=== PATIENT | male | born 1930 | race Caucasian/White ===

== ENCOUNTER → 2016-11-08 | Outpatient (CLI) | payer MEDICARE ==
[2016-04-28 11:00] VITALS: BP 155/85
[~2016-11-08] MED LIST: ASPI325T8 PO; AZIT250T6 PO; CEFP200T PO; DIPH25CA58 PO; EZET10TA18 PO; GUAI600T47 PO; HYDR25TA9 PO; LISI2.5T PO; NIAC500T PO; OSEL30CA PO
--- NOTE | 2016-11-08 14:37 | KCIC ---
INDICATION: Bronchitis. COPD. Productive cough. TECHNIQUE: Two-view chest radiograph contains a repeat PA film. There are 3 images total. No comparison is available at this institution. FINDINGS: The lungs are clear. There is no pleural effusion. The heart is not enlarged and there is no heart failure. There is atheromatous disease in the thoracic aorta with mild tortuosity. There are degenerative changes in the spine. There is no perihilar opacity or peribronchial cuffing. IMPRESSION: No acute thoracic findings. Electronically signed by: Mani Barraza MD (11/08/2016 2:34 PM) [facility]
== END | disposition home or self-care (01) ==
LOC: KCIC 13:34
PROVIDERS: ATTEND Family Medicine
DX: J44.9 Chronic obstructive pulmonary disease, unspecified (principal); J40 Bronchitis, not specified as acute or chronic
CPT/HCPCS: 71020

== ENCOUNTER → 2017-05-08 | Outpatient (CLI) | payer MEDICARE ==
[2017-05-08 11:25] LABS: ALBUMIN 3.5 g/dL (3.4-5.0); ALK PHOS 39 U/L (46-116); ALT (SGPT) 29 U/L (16-63); ANION GAP 9 (6-14); AST (SGOT) 29 U/L (15-37); BLOOD UREA NITROGEN 42 mg/dL (8-26); CALCIUM 9.3 mg/dL (8.5-10.1); CARBON DIOXIDE 27 mmol/L (21-32); CHLORIDE 102 mmol/L (98-107); CHOLESTEROL 116 mg/dL (0-200); CREATININE 2.7 mg/dL (0.7-1.3); DIRECT BILIRUBIN 0.3 mg/dL (0.0-0.2); GFR 22.4; GLUCOSE 109 mg/dL (70-99); HDLC 43 mg/dL (40-60); LDLC 57 mg/dL (0-100); NON-HDL CHOLESTEROL 73 mg/dL (0-129); POTASSIUM 4.4 mmol/L (3.5-5.1); SODIUM 138 mmol/L (136-145); TOTAL BILIRUBIN 0.6 mg/dL (0.2-1.0); TOTAL PROTEIN 7.4 g/dL (6.4-8.2); TRIGLYCERIDES 82 mg/dL (0-150); VLDLC 16 mg/dL (0-40)
[2017-05-08 11:27] LABS: THYROID STIM HORMONE (TSH) 1.819 uIU/mL (0.358-3.74)
[2017-05-08 11:31] LABS: CHOLESTEROL/HDL RATIO 2.7
== END | disposition home or self-care (01) ==
LOC: PF 08:45
DX: Z51.81 Encounter for therapeutic drug level monitoring (principal); I48.91 Unspecified atrial fibrillation; J98.6 Disorders of diaphragm; Z79.899 Other long term (current) drug therapy
CPT/HCPCS: 36415; 71046; 80048; 80061; 80076; 84439; 84443; 94010; 94729

== ENCOUNTER → 2018-03-23 | Outpatient (CLI) | payer MEDICARE ==
[2016-04-28 11:00] VITALS: BP 155/85
[~2018-03-23] MED LIST changes: +HYDR-2145 PO; -HYDR25TA9 PO
--- NOTE | 2018-03-23 11:26 | KCIC ---
CHEST PA LATERAL History: COPD, previous cardiac stent, cardiovascular medicine, history of amiodarone use Comparison: 05/08/2017 Findings: 2 views of the chest are submitted. There is no infiltrate, pneumothorax, or effusion. The cardiac silhouette is within normal limits in size. There is again tortuous thoracic aorta, atherosclerotic calcification near arch. Impression: 1. No new radiographic abnormality is identified. Electronically signed by: Valdo Kahn MD (03/23/2018 11:22 AM) [facility]
== END | disposition home or self-care (01) ==
LOC: KCIC 10:40
PROVIDERS: ATTEND Internal Medicine Interventional Cardiology
DX: J44.9 Chronic obstructive pulmonary disease, unspecified (principal); I77.1 Stricture of artery; I70.0 Atherosclerosis of aorta; Z79.899 Other long term (current) drug therapy
CPT/HCPCS: 71046

== ENCOUNTER 2018-04-26 19:59 | Emergency (ER) | payer MEDICARE ==
[~2018-04-26] VITALS: Ht 170.2 cm; Wt 76.2 kg
[2018-04-26] MEDS ORDERED: IPRATRPIUM/ALBUTEROL 0.5/2.5MG 3 ML NEBU. NEB ONE (20:30)
[2018-04-26 20:32] LABS: BASO # 0.1 x10^3/uL (0.0-0.2); BASO % 1 % (0-3); EOS # 0.2 x10^3/uL (0.0-0.7); EOS % 3 % (0-3); HEMATOCRIT 34.1 % (39.0-53.0); HEMOGLOBIN 11.6 g/dL (13.0-17.5); LYMPH # 1.2 x10^3/uL (1.0-4.8); LYMPH % 14 % (24-48); MEAN CORPUSCULAR HEMOGLOBIN 32 pg (25-35); MEAN CORPUSCULAR HGB CONC 34 g/dL (31-37); MEAN CORPUSCULAR VOLUME 93 fL (79-100); MONO # 1.3 x10^3/uL (0.0-1.1); MONO % 16 % (0-9); NEUT # 5.6 x10^3uL (1.8-7.7); NEUT % 67 % (31-73); PLATELET COUNT 264 x10^3/uL (140-400); RED BLOOD COUNT 3.66 x10^6/uL (4.30-5.70); RED CELL DISTRIBUTION WIDTH 14.5 % (11.5-14.5); WHITE BLOOD COUNT 8.4 x10^3/uL (4.0-11.0)
--- NOTE | 2018-04-26 20:36 | PHYS DOC ---
Past Medical History Past Medical History: COPD, High Cholesterol, Hypertension, SD, Renal Disease Additional Past Medical Histor: end-stage renal disease Past Surgical History: Other Additional Past Surgical Histo: cardiac stents Alcohol Use: None Drug Use: None Adult General Chief Complaint Chief Complaint: COUGH HPI HPI Patient is a 87 year old male who presents with cough and fever for 2 weeks. Patient has been trying to medicate for this at home with colloidal silver and [id number] cough medication. Patient was having discussion with a friend who had similar symptoms and was ultimately diagnosed with pneumonia. Patient had a temperature of 99� today which prompted his presentation to the emergency department. Denies any chest pain or palpitations. He notes that he has had some lower extremity swelling since being taken off of his diuretic due to his chronic kidney disease and low blood pressure while being on a diuretic. Denies any orthopnea or postural nocturnal dyspnea.[] Review of Systems Review of Systems Constitutional: Denies chills [] Eyes: Denies change in visual acuity, redness, or eye pain [] HENT: Denies nasal congestion or sore throat [] Respiratory: Denies shortness of breath with exertion, see history of present illness[] Cardiovascular: No S pain or palpitations[] GI: Denies abdominal pain, nausea, vomiting, bloody stools or diarrhea [] : Denies dysuria or hematuria [] Musculoskeletal: Denies back pain or joint pain [] Integument: Denies rash or skin lesions [] Neurologic: Denies headache, focal weakness or sensory changes [] Endocrine: Denies polyuria or polydipsia [] All other systems were reviewed and found to be within normal limits, except as documented in this note. Current Medications Current Medications Current Medications Medications (Trade) Dose Ordered Sig/[facility] Start Time Stop Time Status Last Admin Dose Admin Albuterol/ Ipratropium (Duoneb) 3 ml 1X ONCE 04/26/18 20:30 04/26/18 20:31 DC 04/26/18 20:59 3 ML Allergies Allergies Allergies Coded Allergies Type Severity Reaction Last Updated Verified No Known Drug Allergies 04/27/16 No Physical Exam Physical Exam Constitutional: Well developed, well nourished, no acute distress, non-toxic appearance. [] HENT: Normocephalic, atraumatic, bilateral external ears normal, oropharynx moist, no oral exudates, nose normal. [] Eyes: PERRLA, EOMI, conjunctiva normal, no discharge. [] Neck: Normal range of motion, no tenderness, supple, no stridor. [] Cardiovascular:Heart rate regular rhythm, no murmur [] Lungs & Thorax: Bilateral breath sounds clear to auscultation [] Abdomen: Bowel sounds normal, soft, no tenderness, no masses, no pulsatile masses. [] Skin: Warm, dry, no erythema, no rash. [] Back: No tenderness, no CVA tenderness. [] Extremities: No tenderness, no cyanosis, no clubbing, ROM intact, 1-2+ pretibial edema bilaterally symmetric[] Neurologic: Alert and oriented X 3, normal motor function, normal sensory function, no focal deficits noted. [] Psychologic: Affect normal, judgement normal, mood normal. [] Current Patient Data Vital Signs Vital Signs Date Time Temp Pulse Resp B/P (MAP) Pulse Ox O2 Delivery O2 Flow Rate FiO2 04/26/18 20:10 98.4 20 140/65 (90) 98 Room Air 98.4 Lab Values Laboratory Tests Test 04/26/18 20:19 White Blood Count 8.4 x10^3/uL (4.0-11.0) Red Blood Count 3.66 x10^6/uL (4.30-5.70) L Hemoglobin 11.6 g/dL (13.0-17.5) L Hematocrit 34.1 % (39.0-53.0) L Mean Corpuscular Volume 93 fL (79-100) Mean Corpuscular Hemoglobin 32 pg (25-35) Mean Corpuscular Hemoglobin Concent 34 g/dL (31-37) Red Cell Distribution Width 14.5 % (11.5-14.5) Platelet Count 264 x10^3/uL (140-400) Neutrophils (%) (Auto) 67 % (31-73) Lymphocytes (%) (Auto) 14 % (24-48) L Monocytes (%) (Auto) 16 % (0-9) H Eosinophils (%) (Auto) 3 % (0-3) Basophils (%) (Auto) 1 % (0-3) Neutrophils # (Auto) 5.6 x10^3uL (1.8-7.7) Lymphocytes # (Auto) 1.2 x10^3/uL (1.0-4.8) Monocytes # (Auto) 1.3 x10^3/uL (0.0-1.1) H Eosinophils # (Auto) 0.2 x10^3/uL (0.0-0.7) Basophils # (Auto) 0.1 x10^3/uL (0.0-0.2) Sodium Level 135 mmol/L (136-145) L Potassium Level 4.2 mmol/L (3.5-5.1) Chloride Level 99 mmol/L (98-107) Carbon Dioxide Level 26 mmol/L (21-32) Anion Gap 10 (6-14) Blood Urea Nitrogen 34 mg/dL (8-26) H Creatinine 2.5 mg/dL (0.7-1.3) H Estimated GFR (Cockcroft-Gault) 24.4 BUN/Creatinine Ratio 14 (6-20) Glucose Level 141 mg/dL (70-99) H Calcium Level 8.7 mg/dL (8.5-10.1) Total Bilirubin 0.6 mg/dL (0.2-1.0) Aspartate Amino Transferase (AST) 41 U/L (15-37) H Alanine Aminotransferase (ALT) 47 U/L (16-63) Alkaline Phosphatase 57 U/L (46-116) Total Protein 6.8 g/dL (6.4-8.2) Albumin 2.9 g/dL (3.4-5.0) L Albumin/Globulin Ratio 0.7 (1.0-1.7) L Laboratory Tests 04/26/18 20:19 Laboratory Tests 04/26/18 20:19 EKG EKG [] Radiology/Procedures Radiology/Procedures Chest x-ray shows no infiltrate, no effusion, no pneumothorax[] Course & Med Decision Making Course & Med Decision Making Pertinent Labs and Imaging studies reviewed. (See chart for details) ED course: Patient arrived, was placed in bed, tolerated exam well. Patient was transported to and from [place] without any complications. After the return of laboratory and imaging studies, these were discussed patient and family voiced understanding. All questions were answered. Patient was discharged in improved condition. Medical decision making: There is no evidence of pneumonia or pneumothorax, no hypoxia. This appears to be more of a bronchitis and potentially post- bronchitic cough. We'll address this as an outpatient.[] Aquiles Disclaimer Dragon Disclaimer This electronic medical record was generated, in whole or in part, using a voice recognition dictation system. Departure Departure Impression: Primary Impression: Cough Disposition: 01 HOME, SELF-CARE Condition: GOOD Referrals: Shauna QUEZADA MD (PCP) Follow-up in 2 days Patient Instructions: Cough, Adult Additional Instructions: Follow-up with your regular doctor in 2 days. Return to the ER if worsening cough, fever more than 101�, difficulty breathing, or any other concerns. Scripts Doxycycline Hyclate (DOXYCYCLINE HYCLATE) 100 Mg Tablet 100 MG PO BID, #20 TAB Prov: KIKI THOMAS DO 04/26/18 D-Methorphan Hb/Prometh Hcl (PROMETHAZINE-DM SYRUP) 118 Ml Syrup 5 ML PO PRN Q4HRS, #120 ML Prov: KIKI THOMAS DO 04/26/18 Albuterol Sulfate (VENTOLIN HFA INHALER) 18 Gm Hfa.aer.ad 2 PUFF INH Q4HRS for FOR ASTHMA, #1 INHALER 0 Refills Prov: KIKI THOMAS DO 04/26/18 KIKI THOMAS DO Apr 26, 2018 20:36
[2018-04-26 20:41] LABS: CALCIUM 8.7 mg/dL (8.5-10.1); CREATININE 2.5 mg/dL (0.7-1.3); GFR 24.4; POTASSIUM 4.2 mmol/L (3.5-5.1)
[2018-04-26 20:47] LABS: ALBUMIN 2.9 g/dL (3.4-5.0); ALBUMIN/GLOBULIN RATIO 0.7 (1.0-1.7); TOTAL BILIRUBIN 0.6 mg/dL (0.2-1.0); TOTAL PROTEIN 6.8 g/dL (6.4-8.2)
[2018-04-26] MEDS ORDERED: PROM118S9 PO (21:23)
[2018-04-26] MEDS ORDERED: VENTOLIN HFA18 GM INH (21:23)
[2018-04-26] MEDS ORDERED: DOXY100T PO (21:23)
[2018-04-26 21:30] VITALS: BP 128/62
--- NOTE | 2018-04-26 22:04 | RAD ---
Chest PA and lateral: Reason for examination: Cough and fever. Comparison is made to previous study dated 03/23/2018. The heart size is normal. Mediastinum is unremarkable. Lung hunter show mild increase in the interstitial markings which is predominantly lower lobe. No consolidated infiltrates or pleural effusions are seen. No acute bony abnormalities are seen. Impression: Mild increase in the interstitial markings bilaterally which is predominantly basilar. This could reflect some interstitial edema or interstitial infiltrates. Recommend clinical correlation and follow-up. Electronically signed by: Liz Joseph MD (04/26/2018 9:59 PM) [facility]
== END 2018-04-26 21:55 | disposition home or self-care (01) ==
LOC: ER 19:59
DX: R05 Cough (principal); J44.9 Chronic obstructive pulmonary disease, unspecified; E78.00 Pure hypercholesterolemia, unspecified; I25.2 Old myocardial infarction; I12.0 Hypertensive chronic kidney disease with stage 5 chronic kidney disease or end stage renal disease; N18.6 End stage renal disease
CPT/HCPCS: 36415; 71046; 80053; 85025; 87040; 94640; 99284; J7620

== ENCOUNTER 2018-05-10 21:07 | Emergency (ER) | payer MEDICARE ==
[~2018-05-10 21:07] MED LIST changes: +CALCIUM CHLORIDE 1,000 MG/10 ML DISP.SYRIN ONE; +D-ME118S2 PO; +DOPamine 400MG/250ML PREMIX 400 MG/250 ML BAG IV ONE; +DOXY100T PO; +EPINEPHrine SYRINGE 1 MG/10 ML SYRINGE ONE; +SODIUM BICARB ADULT 8.4% 50 MEQ/50 ML DISP.SYRIN. ONE; +VENTOLIN HFA18 GM INH
[2018-05-10 21:28] VITALS: BP 101/56
[2018-05-10] MEDS ORDERED: MORPHINE SULFATE 10 MG/ML VIAL. ONE (21:45)
[2018-05-10] MEDS ORDERED: MORPHINE SULFATE 4 MG/ML VIAL. IV ONE (22:00)
[2018-05-10] MEDS ORDERED: NOREPINEPHRIN 8MG/250ML PREMIX 250 ML IV ONE (22:00)
--- NOTE | 2018-05-10 22:18 | RAD ---
CHEST AP ONLY Clinical Indication: POST INTUBATION Comparison: 04/26/2018 two-view chest x-ray exam. Findings: Endotracheal tube terminates 1.1 cm from the tessa. The cardiomediastinal silhouette is normal. Interstitial thickening diffusely is noted opacity the right lateral mid thoracic level is somewhat more evident than on the prior exam. There is no pneumothorax. No pleural effusion is appreciated. No acute bone abnormality. IMPRESSION: Interstitial infiltrates and/or edema. Subtle right lateral thoracic infiltrate or other opacity is more evident in the interval. Electronically signed by: Issa Mcclellan MD (05/10/2018 10:16 PM) [facility]
--- NOTE | 2018-05-10 23:32 | PHYS DOC ---
Adult General Chief Complaint Chief Complaint: CPR/FULL ARREST HPI HPI Patient is a 87 year old male brought in by his with a cardiac arrest he apparently was sitting in his chair he said all of a sudden he could not move his left leg at all He then went out into the hallway and promptly fell backwards hit his head and had a pulseless cardiac arrest were tired paramedics started CPR right away patient has pinpoint pupils on arrival they tried Narcan it didn't help they had at least 20 minutes of downtime no return of spontaneous circulation they gave epi history limited by the patient's acute critical illness Review of Systems Review of Systems Limited by critical illness Current Medications Current Medications Current Medications Medications (Trade) Dose Ordered Sig/[facility] Start Time Stop Time Status Last Admin Dose Admin Dopamine HCl/ Dextrose 250 ml @ 0 mls/hr 1X ONCE 05/10/18 23:00 05/10/18 23:01 DC 05/10/18 21:32 7.5 MLS/HR Morphine Sulfate (Morphine Sulfate) 10 mg STK-MED ONCE 05/10/18 21:45 05/10/18 21:46 DC Norepinephrine Bitartrate 250 ml @ 1.875 mls/ hr 1X ONCE 05/10/18 22:00 05/10/18 22:00 DC Allergies Allergies Allergies Coded Allergies Type Severity Reaction Last Updated Verified Unable to Assess 05/10/18 No Physical Exam Physical Exam Constitutional: Obtunded HENT: Normocephalic, , bilateral external ears normal, oropharynx moist, no oral exudates, nose normal. [] Eyes: Pinpoint pupils Neck: Normal range of motion, no tenderness, supple, no stridor. [] Cardiovascular:H no definite murmur was noted after ROSC Lungs & Thorax: Decreased breath sounds on the right with intubation Abdomen: Bowel sounds normal, soft, no tenderness, no masses, no pulsatile masses. [] Skin pallor noted Back: No tenderness, no CVA tenderness. [] Neurologic: Obtunded pinpoint pupils no response to painful stimulus Psychologic: Unable to assess Current Patient Data Vital Signs Vital Signs Date Time Temp Pulse Resp B/P (MAP) Pulse Ox O2 Delivery O2 Flow Rate FiO2 05/10/18 22:00 6 Room Air 05/10/18 21:34 100 05/10/18 21:28 48 101/56 (71) Lab Values Laboratory Tests Test 05/10/18 21:14 Glucose (Fingerstick) 146 mg/dL (70-99) H EKG EKG []EKG shows a rate of 67 wide-complex this is a post cardiac arrest EKG no definite ST elevation was identified. Radiology/Procedures Radiology/Procedures [] Impressions: IMPRESSION: Interstitial infiltrates and/or edema. Subtle right lateral thoracic infiltrate or other opacity is more evident in the interval. Electronically signed by: Issa Mcclellan MD (05/10/2018 10:16 PM) [facility] Course & Med Decision Making Course & Med Decision Making Pertinent Labs and Imaging studies reviewed. (See chart for details) [] Critical care time was 45 minutes exclusive of procedures. For bedside management of cardiac arrest return of spontaneous circulation management discussion with family and ultimately withdrawal of care. In summary this is an 87 no male with a prior history of coronary artery disease with stent placement on Yoana Mesha who is brought in by an etc. cardiac arrest apparently he had left leg weakness prior to onset perhaps he had an acute stroke that led to hypoxic event and cardiac arrest perhaps he had dissection in lead cardiac arrest as well differential is broad. I immediately upon arrival to the emergency room we continued CPR I performed laryngoscopy's Jr 47.5 tube some difficulty passing the tube distal to the focal cords but eventually I was able to get a 7.5 tube in on the second try a small 0.5 cm laceration was inadvertently caused to the lower lip confirmed placement with breath sounds although they were decreased on the right however there was no tracheal deviation we did a chest x-ray that showed No pneumothorax the tube was maybe a little deep and it appeared to be in decent position. We were doing CPR this entire time we gave epi we gave calcium gluconate and bicarbonate after this we did get return of spontaneous circulation with a rate of about 60 and a blood pressure initially of 180 and then he was in the 90s we started fed I attempted a triple lumen catheter stat catheter in the right groin this was unsuccessfuL. I then went to talk to the who had arrived in the interim. She says that this patient has very clearly stated to her in the recent past that he does not want to be on a ventilator he does not want to be leading to a intermediate if he had a major event he would not want to be on life support. She said that she wants is to withdraw any care at this time that that's what he would want and he was alert and responsive and oriented when he told her this as recently as last . Care was withdrawn morphine was ordered as needed for air hunger. Time of 2203 shortly after removal of life support family was at bedside CONDOLENCES were offered Dragon Disclaimer Dragon Disclaimer This electronic medical record was generated, in whole or in part, using a voice recognition dictation system. Departure Departure Impression: Primary Impression: Cardiac arrest Disposition: 20 Condition: Referrals: Shauna QUEZADA MD (PCP) SORAYA TELLO MD May 10, 2018 23:32
--- NOTE | 2018-05-11 15:01 | EKG ---
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
== END 2018-05-11 00:35 | disposition expired ==
LOC: EDBD 21:07 → MERGE 21:07 → ER 21:07
DX: I46.9 Cardiac arrest, cause unspecified (principal)
CPT/HCPCS: 31500; 36556; 71045; 82962; 92950; 93005; 96365; 96375; 99291; J0171; J1265; J2270; J3490; 43752; 94002